=== PATIENT | male | born 1945 | race Caucasian/White ===

== ENCOUNTER 2017-12-06 14:44 | Emergency (ER) | payer OTHER ==
[~2017-12-06] VITALS: Ht 188 cm; Wt 106.4 kg
[~2017-12-06 14:44] MED LIST: AMLODIPINE BESYL5 MG PO; ASPIR-TRIN325 M1 PO; ASPIRIN EC325 M1 PO; BACTRIM,SEPT1 TABLET PO; COREG25 M1 PO; EFFIENT10 MG PO; FLONASE16 G1 BOTH NARES; GLIPIZIDE-METF1 EAC2 PO; GLIPIZIDE-METF1 EACH PO; GLIPIZIDE5 MG PO; GLUCOPHAGE500 MG PO; GLYNASE1.5 MG PO; HYDROCHLOROTHIA25 MG PO; HYDRODIURIL,ORE25 MG PO; K-DUR20 MEQ PO; LEVOXYL200 MCG PO; LEVOXYL25 MCG PO; Levothroid,Synthroid PO; METFORMIN HCL500 MG PO; METOPROLOL SUCC25 MG PO; NIASPAN,SLO-N1000 MG PO; PRAVACHOL20 MG PO; PRAVASTATIN SOD20 MG PO; PRINIVIL20 MG PO; TAMSULOSIN HCL0.4 MG PO; TERAZOSIN HCL1 MG PO; TERAZOSIN HCL5 MG PO; TOPROL XL100 MG PO; ZESTRIL,PRINIVI20 MG PO; Zestril,Prinivil PO
[2017-12-06 16:08] LABS: HEMOGLOBIN 13.7 G/DL (12.5-16.6); MCH 30.5 PG (29.0-34.0); MCHC 34.3 G/DL (30.0-36.0); MCV 89.1 FL (86-99); PLATELET COUNT 195 K/uL (156-360); RBC DIS.WIDTH-CV 13.8 % (11.8-14.6); RBC DIS.WIDTH-SD 45.1 % (39-53); RED BLOOD COUNT 4.49 M/uL (4.00-5.50)
[2017-12-06 16:17] LABS: CHLORIDE 101 mEq/L (99-109); POTASSIUM 3.4 mEq/L (3.7-5.4); SODIUM 138 mEq/L (136-147)
[2017-12-06 16:19] LABS: GLUCOSE 152 mg/dL (70-99); PTT 28.1 SEC (25-37)
[2017-12-06 16:23] LABS: CREATININE 1.2 mg/dL (0.6-1.3); GFR ESTIMATE (CALCULATED) > 59 mL/min/ (58.99-99999)
[2017-12-06 16:24] LABS: UREA NITROGEN (BUN) 20 mg/dL (9-23)
[2017-12-06 16:29] LABS: TROP-I INTERPRETATION NEGATIVE; TROPONIN-I < 0.01 ng/mL (0.0-0.30)
[2017-12-06] MEDS ORDERED: KEFLEX500 MG PO (17:21)
[2017-12-06 17:29] VITALS: BP 159/92
== END 2017-12-06 17:36 | disposition home or self-care (01) ==
LOC: EME 14:44
PROVIDERS: Nurse Practitioner Family
PROC: 3E0234Z Introduction of Serum, Toxoid and Vaccine into Muscle, Percutaneous Approach (ICD-10-PCS; principal; 2017-12-06)
DX: S80.11XA Contusion of right lower leg, initial encounter (principal); S80.819A Abrasion, unspecified lower leg, initial encounter; Z23 Encounter for immunization; W31.89XA Contact with other specified machinery, initial encounter; R60.0 Localized edema; E11.65 Type 2 diabetes mellitus with hyperglycemia; Z79.84 Long term (current) use of oral hypoglycemic drugs; E87.6 Hypokalemia; M77.31 Calcaneal spur, right foot; R94.31 Abnormal electrocardiogram [ECG] [EKG]; I10 Essential (primary) hypertension; Z79.82 Long term (current) use of aspirin; Z87.891 Personal history of nicotine dependence
CPT/HCPCS: 73610; 73630; 80048; 84484; 85027; 85610; 85730; 93005; 93971; 99281; 99284